=== PATIENT | female | born 1960 | race Caucasian/White ===

== ENCOUNTER → 2016-12-19 | Outpatient (CLI) | payer OTHER ==
--- NOTE | 2016-12-19 14:52 | DIAGNOSTIC IMAGING REPORT ---
LUMBAR SPINE MRI HISTORY: LUMBAR RADICULOPATHY TECHNIQUE: Multiplanar multisequence MRI of the lumbar spine was performed without the use of contrast. COMPARISON: None. FINDINGS: For the purpose of the report the L5-S1 disc space will be located on axial image 23 of 25. Mild levoscoliosis. Alignment is intact. No fractures within the lumbar spine. Lumbar subcutaneous edema. The visualized retroperitoneal soft tissues are intact. The conus terminates at the L1 level. Mild disc space narrowing at L1-L2. Moderate to space narrowing at L3-L4 and L4-L5. L1-L2: Tiny broad-based posterior disc bulge without significant central canal narrowing. There is also a 3 mm focal left paracentral disc protrusion which does not abut the nerve roots. No significant neural foraminal narrowing. L2-L3: Left foraminal broad-based disc protrusion without significant central canal narrowing. This results in moderate left-sided neural foraminal narrowing and abuts the exiting left L2 nerve root. L3-L4: Broad-based posterior disc bulge with a 12 x 5 mm focal central disc protrusion. This results in moderate central canal and moderate bilateral neural foraminal narrowing. L4-L5: Small broad-based posterior disc bulge with a focal central annular tear. In conjunction with the facet hypertrophy this results in mild to moderate central canal and mild right and moderate left neural foraminal narrowing. L5-S1: No central canal or left-sided neural foraminal narrowing. There is a right foraminal focal disc protrusion which abuts the exiting right L5 nerve root and results in moderate to severe right-sided neural foraminal narrowing. IMPRESSION: 1. Multilevel lumbar spondylosis as described above most pronounced at the L3-L4 level where there is a broad-based posterior disc bulge and focal central disc protrusion resulting in moderate central canal and moderate bilateral neural foraminal narrowing at this level. 2. No fracture or subluxation. 3. Mildly the scoliosis. Electronically signed by: Silver Gómez M.D. 12/19/2016 2:50 PM Dictated Date/Time: 12/19/2016 2:41 PM
== END | disposition home or self-care (01) ==
PROVIDERS: ATTEND Orthopaedic Surgery Orthopaedic Surgery of the Spine
DX: M47.26 Other spondylosis with radiculopathy, lumbar region (principal); M51.16 Intervertebral disc disorders with radiculopathy, lumbar region